=== PATIENT | male | born 1995 | race Two or more races ===

== ENCOUNTER 2021-07-16 06:34 | Day surgery (SDC) | payer OTHER ==
[2021-07-16] MEDS ORDERED: CEPHALEXIN500 M1 PO (10:04)
[2021-07-16] MEDS ORDERED: CIPRODEX OTIC7.5 ML OTIC (10:04)
== END 2021-07-16 12:20 | disposition home or self-care (01) ==
LOC: CIR.AMB 06:34
PROVIDERS: ATTEND Otolaryngology Otology & Neurotology
DX: H72.02 Central perforation of tympanic membrane, left ear (principal); H90.12 Conductive hearing loss, unilateral, left ear, with unrestricted hearing on the contralateral side; Z20.822 Contact with and (suspected) exposure to COVID-19; E66.9 Obesity, unspecified